=== PATIENT | female | born 1980 | race Caucasian/White ===

== ENCOUNTER → 2017-02-01 | Outpatient (CLI) | payer BC ==
[~2017-02-01] MED LIST: GADOBUTROL 10mMol/10ml INJECTION IV ONE; SALINE FLUSH 10ml SYRINGE ONE
--- NOTE | 2017-02-01 14:36 | DI ---
Indication: ITS.REASON: M50.123 CERVICAL DISC DISORDER; M54.12 CERVICALGIA PROCEDURE: MRI CERVICAL SPINE W/WO CONTRA: Encounter: Initial Comparison: CT cervical spine dated December 18, 2016 and MRI cervical spine dated September 30, 2015 Technique: Multiplanar multisequence MR imaging of the cervical spine was performed with and without contrast. Contrast: 8.5 mL Gadavist Findings: Anterior cervical fusion again noted at C5-C7 causing metallic susceptibility artifact. No acute fracture identified. The prior large disk extrusion at C5-C6 is no longer seen due to the interval surgery. There is however a new large disk extrusion at the junctional C4-C5 level which is asymmetric towards the right causing compression of the spinal cord. No acute cord edema seen however. The cervical and visualized upper thoracic spinal cord signal intensity is normal. Paraspinal soft tissues are unremarkable. Segmental analysis: C2-C3: Normal C3-C4: Normal C4-C5: Large bilobed central and right central disk extrusion causing severe compression of the spinal cord and severe central canal stenosis. This extends towards both neural foramen and results in mild bilateral foraminal stenosis. The largest area of extruded disk measures 12 x 6 mm on sagittal image #8. C5-C6: No focal disk herniation or central canal stenosis. Degenerative facet changes on the left resulting in mild left neural foraminal stenosis. No significant right foraminal narrowing. C6-C7: Disk osteophyte complex and uncovertebral hypertrophy on the left causing moderate neural foraminal stenosis. No central canal or right neural foraminal narrowing. C7-T1: Normal Postcontrast images show no areas of worrisome postcontrast enhancement. Impression: New large disk extrusion at the C4-C5 level causing severe cord impingement. .
== END ==
LOC: IMA 12:28
PROVIDERS: ATTEND Neurological Surgery
DX: M50.121 Cervical disc disorder at C4-C5 level with radiculopathy (principal); M47.892 Other spondylosis, cervical region; M50.123 Cervical disc disorder at C6-C7 level with radiculopathy
CPT/HCPCS: 36569; 72156; A9585; C1751